=== PATIENT | female | born 1990 | race Caucasian/White ===

== ENCOUNTER 2016-12-02 17:19 | Emergency (ER) | payer MEDICAID ==
[2009-11-01 08:39] VITALS: BMI 31.6
[2016-12-02 18:39] LABS: BASOPHILS 0.1 % (0.0-2.0); EOSINOPHILS 1.3 % (0-7); HEMATOCRIT 39.6 % (36.0-48.0); HEMOGLOBIN 13.2 g/dL (12-16); IMMATURE GRANULOCYTES 0.3 % (0-5); LYMPHOCYTES 24.3 % (15-50); MCH 29.1 pg (26.0-34.0); MCHC 33.3 g/dL (31.0-37.0); MCV 87.4 fL (80.0-100.0); MEAN PLATELET VOLUME 11.3 fL (7.4-10.4); RBC 4.53 10x6/uL (4.00-5.40); RDW 13.2 % (11.5-14.5); WBC 14.1 10x3/uL (4.8-10.8)
[2016-12-02 18:46] LABS: PLATELET COUNT 216 10x3/uL (130-400)
== END 2016-12-02 23:48 | disposition home or self-care (01) ==
LOC: D.ER 17:19
PROVIDERS: Family Medicine
DX: N93.9 Abnormal uterine and vaginal bleeding, unspecified (principal)

== ENCOUNTER 2017-03-18 10:25 | Outpatient (CLI) | payer MEDICAID ==
[2009-11-01 08:39] VITALS: BMI 31.6
--- NOTE | 2017-03-18 16:19 | NUR ---
1030-PATIENT TO ROOM. 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 1035-INJECTION GIVEN -4ML WITH 2ML TO EACH HIP. 1045-RESP WITH EASE. DISCHARGED TO WORK.
== END 2017-03-18 10:45 | disposition home or self-care (01) ==
LOC: D.OPS 10:25
DX: A52.9 Late syphilis, unspecified (principal)

== ENCOUNTER 2017-03-25 11:30 | Outpatient (CLI) | payer MEDICAID ==
[2017-03-25 12:05] VITALS: Ht 157.5 cm
== END 2017-03-25 12:05 | disposition home or self-care (01) ==
LOC: D.OPS 11:30
DX: A52.9 Late syphilis, unspecified (principal)

== ENCOUNTER 2017-04-01 13:00 | Outpatient (CLI) | payer MEDICAID ==
--- NOTE | 2017-04-01 15:57 | NUR ---
1450-PATIENT STATES NEEDS TO HURRY BACK TO WORK, DOESNT HAVE TIME FOR ALL THOSE QUESTIONS TODAY. 1500-MEDICINE HERE FROM PHARMACY. 1505-INJECTIONS OF 2CC EACH GIVEN TO BILAT DELTOID, REFUSES HIP INJECTIONS. 1515-D/C BACK TO WORK. SHE HAS NO QUESTIONS OR CONCERNS.
== END 2017-04-01 23:59 | disposition home or self-care (01) ==
LOC: D.OPS 13:00
DX: O98.119 Syphilis complicating pregnancy, unspecified trimester (principal)

== ENCOUNTER → 2017-07-09 10:50 | Outpatient (CLI) | payer MEDICAID ==
[~2017-07-09 10:50] MED LIST: ACETAMINOPHEN500 M1 PO; HYDROCODON-ACE1 EAC7 PO; IBUPROFEN600 MG PO; IBUPROFEN800 MG PO; TUMS500 MG PO
== END | disposition home or self-care (01) ==
LOC: D.LDO 10:50
DX: O36.8130 Decreased fetal movements, third trimester, not applicable or unspecified (principal); Z3A.00 Weeks of gestation of pregnancy not specified

== ENCOUNTER 2017-07-11 12:28 | Inpatient (IN) | payer MEDICAID ==
[2017-07-11 13:25] LABS: HEMATOCRIT 33.2 % (36.0-48.0); HEMOGLOBIN 11.5 g/dL (12-16); MCH 29.7 pg (26.0-34.0); MCHC 34.6 g/dL (31.0-37.0); MCV 85.8 fL (80.0-100.0); RBC 3.87 10x6/uL (4.00-5.40); RDW 13.1 % (11.5-14.5); WBC 12.5 10x3/uL (4.8-10.8)
[2017-07-11] MEDS ORDERED: ACETAMINOPHEN500 M1 PO (13:32)
[2017-07-11] MEDS ORDERED: TUMS500 MG PO (13:33)
[2017-07-11 13:34] VITALS: BP 111/70; BMI 32.1
[2017-07-11 14:29] LABS: APPEARANCE CLEAR (CLEAR); BILIRUBIN NEGATIVE (NEGATIVE); COLOR YELLOW (YELLOW); GLUCOSE NEGATIVE (NEGATIVE); KETONE NEGATIVE (NEGATIVE); NITRITE NEGATIVE (NEGATIVE); PROTEIN TRACE mg/dL (NEGATIVE); SPECIFIC GRAVITY 1.005 (1.005-1.020); UROBILINOGEN NORMAL (NORMAL)
[2017-07-11 14:32] LABS: BACTERIA FEW /hpf (NONE SEEN); RED CELLS - URINE 25-50 /hpf (0-5); WHITE CELLS - URINE 25-50 /hpf (0-5)
--- NOTE | 2017-07-12 00:58 | NUR ---
Pt requesting prn pain medication. Pt requested pain medication prior to moving rooms. 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 Administered [place] as ordered for pain that pt is rating "7/10". See EMAR for biomedical equipment specialist.
--- NOTE | 2017-07-12 01:21 | NUR ---
Pt request prn pain medication for cramping. See EMAR for medical transcriber. Also provided ice pack for ginette area. Explained use of dermaplast spray. No questions voiced. C/L in reach. Bed low. SR upx2. S/O laying in bed with pt.
--- NOTE | 2017-07-12 03:00 | NUR ---
Pt ambulating in room. Reports continued pain relief from prn meds. Denies any needs or concerns. S/O in room. C/L in reach. Bed low. SR upx2.
--- NOTE | 2017-07-12 05:14 | NUR ---
Pt request prn pain medication. Rating pain 4/10 in ginette area and lower back. PRN medication administered. See EMAR. VS obtained while in room. Pt denies any other needs or concerns. Reports voiding without difficulty. Scant lochia with no clots. Fundus firm. C/L in reach. Bed low. SR upx2.
[2017-07-12 05:15] VITALS: BP 121/66
[2017-07-12 07:30] VITALS: BP 100/70
--- NOTE | 2017-07-12 07:30 | NUR ---
RECEIVED PT LYING TO LEFT SIDE IN BED. WAKES UPON ENTERING ROOM. VSS. AAO X 3. HRRR WITHOUT AUDIBLE MURMUR. BILATERAL EXPIRATORY WHEEZES NOTED TO UPPER LOBES. BBS CLEAR AFTER PT CLEARS/COUGHS. ABDOMEN SOFT/NON-DISTENDED. FUNDUS FIRM AT U/U. RUBRA LOCHIA SMALL AMT. PERINEUM WITH SMALL AMT OF EDEMA NOTED. SKIN PINK IN COLOR. PT DENIES PASSING CLOTS OR HEAVY BLEEDING. NEG HOMANS' SIGN. PPP. NO EDEMA NOTED TO BLE. SL SITE CLEAR. PT REQUESTS AND RECEIVES COKE AND CUP OF ICE. PT DENIES PAIN. SR UP X 2. CALL LIGHT IN REACH. TREAT BOX PROVIDED TO PT AND INSTRUCTED ON 1 X MEAL TICKET FOR SPOUSE. VERBALIZES UNDERSTANDING.
--- NOTE | 2017-07-12 08:15 | NUR ---
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 REQUESTS AND RECEIVES MORE PANTIES, PERIPADS AND CHUX.
--- NOTE | 2017-07-12 09:00 | NUR ---
PT SITTING UP IN BED. REQUESTS AND RECEIVES MORE BETADINE FOR PERIWASH. DENIES PAIN OR OTHER NEEDS.
--- NOTE | 2017-07-12 10:24 | NUR ---
PT AMBULATORY IN ROOM. REQUESTS AND RECEIVES ICE PACK. NO OTHER C/O OR NEEDS VOICED.
--- NOTE | 2017-07-12 12:10 | NUR ---
PT SITTING UP IN BED. VISITS WITH FAMILY. DENIES NEEDS OR C/O.
--- NOTE | 2017-07-12 13:14 | NUR ---
REQUESTED PAIN MEDICATION FOR C/O 4/10 PERINEAL THROBBING. DISCUSSED PAIN MANAGEMENT OPTIONS. HAS DERMOPLAST. TORADOL 10MG GIVEN PO FOR RELIEF OF PAIN. WITCH BRAD PADS ALSO GIVEN FOR RELIEF OF PERINEAL DISCOMFORT. INSTRUCTED ON USE. VERBALIZED UNDERSTANDING. DISCUSSED SITZ BATH. INSTRUCTED TO CALL WHEN READY TO USE SO THAT DEMONSTRATION AND ASSISTANCE CAN BE PROVIDED. ITEMS LEFT IN ROOM FOR SHOWER AND LINEN CHANGE. TO CALL WHEN READY. EXTRA DISPOSABLE UNDERWEAR IN ROOM WITH PADS. VISITOR IN BED WITH PT. INFANT IN ROOM. SIDE RAILS UP X 2. TO CALL IF ANYTHING ELSE IS NEEDED.
--- NOTE | 2017-07-12 14:23 | NUR ---
TO ROOM TO DO PAIN REASSESSMENT. FAMILY SAYS SHE IS TAKING A WALK AND WILL BE BACK SOON. IN ROOM WITH FAMILY.
--- NOTE | 2017-07-12 15:01 | NUR ---
SITTING UP ON BED. SAYS HER PAIN IS "ZERO". VISITORS IN ROOM. IN ROOM. NO REQUESTS AT THIS TIME.
[2017-07-12 16:00] VITALS: BP 113/69
--- NOTE | 2017-07-12 16:00 | NUR ---
PT SITTING UP IN BED. VISITS WITH FAMILY. VSS. PT DENIES PAIN OR NEEDS.
--- NOTE | 2017-07-12 18:00 | NUR ---
PT SITTING UP IN BED. ON LAPTOP. PT AGAIN, REINSTRUCTED ON USE OF SITZ BATH ORDERED BY PHYSICIAN. PT STATES UNDERSTANDING.
--- NOTE | 2017-07-12 18:46 | NUR ---
DR RHOADES HERE. VISITS WITH PT. NO NEW ORDERS RECEIVED.
--- NOTE | 2017-07-12 18:58 | NUR ---
REPORT GIVEN TO ON-COMING SHIFT.
[2017-07-12 19:13] VITALS: BP 114/68
--- NOTE | 2017-07-12 19:13 | NUR ---
RN TO PT BS. PT LYING ON BACK ON BEDSIDE COUCH WITH UP IN ARMS. PT AAOX3. BREATH SOUNDS CLEAR & UNLABORED X2. HR-RRR, PPP, BOWEL SOUNDS ACTIVE X4. FUNDUS FIRM, ML, U/2. PT REPORTS SMALL BLEEDING WITH NO CLOTS NOTED WHEN VOIDING. PIV TO LT HAND D/C'D WITH CATH TIP INTACT. BANDAID PLACED OVER SITE. PT JOSE. WELL. NO EDEMA NOTED TO BLE. PT DENIES FURTHER NEEDS AT THIS TIME. FOB AT BEDSIDE FOR SUPPORT. WILL CONT TO MONITOR. BED LOW, WHEELS LOCKED, CL IN REACH, SIDE RAILS UPX2.
--- NOTE | 2017-07-12 20:36 | NUR ---
ROUNDS MADE. FOB LYING ON BEDSIDE COUCH WITH IN OPEN CRIB AT BEDSIDE. PT NOTED TO NOT BE IN THE ROOM AND FOB REPORTS PT IS "WALKING." ADV FOB TO LET PT KNOW TO RING CL IF SHE NEEDS ANYTHING. UNDERSTANDING VERBALIZED.
--- NOTE | 2017-07-12 21:40 | NUR ---
ROUNDS MADE. PT AND FOB OUT OF ROOM AT THIS TIME. WILL CHECK BACK.
--- NOTE | 2017-07-12 22:35 | NUR ---
TORADOL 10MG PO X1 TAB GIVEN PER PT REQUEST FOR PAIN RATED 1/10 IN PERINEUM AT THIS TIME. VSS. PT SITTING UP IN BED WITH INFANT UP IN ARMS BONDING AT THIS TIME. PT DENIES FURTHER NEEDS. WILL CONT TO MONITOR.
--- NOTE | 2017-07-12 23:20 | NUR ---
PAIN REASSESSMENT COMPLETE. PT RATES PAIN 0/10 AT THIS TIME AND DENIES FURTHER NEEDS.
[2017-07-12 23:54] VITALS: BP 119/72
--- NOTE | 2017-07-13 00:15 | NUR ---
PT CALLS VIA CL. REQUEST SODA AND ICE, GIVEN PER REQUESTS. DENIES ADDITIONAL NEEDS. CHANGING DIAPER AT THIS TIME. NOTIFIED PT THAT NBN WILL NEED INFANT FOR V/S AND WT PRIOR TO NEXT FEEDING, VERBALIZES UNDERSTANDING. BED IN LOW POSITION WITH UPPER SIDE RAILS RAISED X2. CL AND PHONE WITHIN REACH. S/O AT BEDSIDE AND SUPPORTIVE OF PT NEEDS.
--- NOTE | 2017-07-13 02:58 | NUR ---
PT ON CL REQUESTING PAIN MEDICATION AND SOMETHING FOR NAUSEA. WILL RETURN WITH SAME.
--- NOTE | 2017-07-13 03:00 | NUR ---
MD ON UNIT AND CONSULTED. V/O RCVD FOR 4 MG ZOFRAN Q4H PRN.
--- NOTE | 2017-07-13 03:25 | NUR ---
[place] 5/325MG X1 TAB GIVEN FOR PAIN RATED 6/10 AT THIS TIME. PT ADV TO STAY ON UNIT WHEN TAKING NARCOTICS. PT VERBALIZED UNDERSTANDING AND IS AGREEABLE. ZOFRAN 4MG X1 TAB GIVEN FOR PT C/O NAUSEA. PT DENIES FURTHER NEEDS. INFANT UP IN ARMS AT THIS TIME. WILL CONT TO MONITOR.
--- NOTE | 2017-07-13 04:10 | NUR ---
PAIN REASSESSMENT COMPLETE. PT RATES PAIN 3/10 AT THIS TIME AND TOLERABLE. PT SITTING UP IN BED WITH UP IN ARMS BONDING AND DENIES FURTHER NEEDS.
--- NOTE | 2017-07-13 06:08 | NUR ---
ROUNDS MADE. PT SITTING UP IN BED BREAST FEEDING AT THIS TIME. PT REQUESTS NAUSEA MEDICATION. ADV PT THAT IT IS EVERY 4 HOURS NEEDED. PT C/O INFANT NOT SLEEPING AND STATES "I'M JUST TIRED. I NEED TO SLEEP." ADV PT THAT WILL NOTIFY ONCOMING SHIFT OF DESIRE FOR ZOFRAN. PT IS AGREEABLE AND DENIES FURTHER NEEDS.
--- NOTE | 2017-07-13 07:45 | NUR ---
to room for am assessment, pt sitting up in bed while eating regular diet tray, request made that pt call when she is finished eating. Guest tray offered to spouse and his is acceptable. Dietary ordered placed thru [facility].
--- NOTE | 2017-07-13 08:28 | NUR ---
MED GIVEN FOR NAUSEA. PT'S BREAKFAST TRAY SITTING ON HER BEDSIDE TABLE.
--- NOTE | 2017-07-13 09:00 | NUR ---
Pt calls out questions where guest food tray is, explained that dietary would be called since order had been placed.
--- NOTE | 2017-07-13 09:18 | NUR ---
To room to explain that dietary was contacted and complete am assessment, spouse at bedside holding but pt has stepped out of room at this time.
--- NOTE | 2017-07-13 10:46 | NUR ---
Pt denies pain or discomfort at this time, she is sitting up in bed with infant. VSS as charted on flowsheet as well as completed, pt denies any concerns with rooming in since infant will not be discharged until later in the week. Paperwork about rooming in left with her and will be gone over along with discharge instructions when sig other returns to room. Denies any clots with voids and states bleeding is less than her menstral. side rails up x 2 with phone and call light in reach.
[2017-07-13 10:53] VITALS: BP 107/77
--- NOTE | 2017-07-13 11:40 | NUR ---
Called to room, sig other present and agrees to go and get scripts filled. Provided with scripts for [place] 5/325mg and Motrin 800mg. Medical records number provided and she states understanding to call for paternity affidavit to be signed. Sintia pads placed in bathroom per pt request. No other needs at this time, will call when she is ready for her discharge paperwork.
--- NOTE | 2017-07-13 12:07 | NUR ---
Large cup of ice per request. no other needs/ denies pain or discomfort.
[2017-07-13] MEDS ORDERED: HYDROCODON-ACE1 EAC7 PO (14:29)
[2017-07-13] MEDS ORDERED: IBUPROFEN800 MG PO (14:29)
--- NOTE | 2017-07-13 14:40 | NUR ---
attempt to go over discharge instructions with pt but she is resting with eyes closed and resp even. Will recheck in approx an hour. side rails up x 2 with phone and call light in reach.
--- NOTE | 2017-07-13 15:45 | NUR ---
Verbal and written discharge instructions gone over, pt states her understanding and questions answered about continue dietary services with roooming in. Sig other had scripts filled and brought back to room. pt rates pain at this time at 5/10 and request pain med if possible. No other questions or concerns at this time.
--- NOTE | 2017-07-13 16:00 | NUR ---
pain med given as charted on emar. explained would reevalute pain in approx 30 minutes than proceed with discharge pt states her understanding. in crib at bedside.
--- NOTE | 2017-07-14 08:44 | PRO ---
PATIENT:LOPEZ STEVENSON MAGDALENA MEDICAL RECORD: [id number] : 88 LOCATION:[id number] ADMISSION DATE: 07/11/17 PROCEDURE PERFORMED BY: MAGI ASENCIO MD DATE OF PROCEDURE: 07/13/2017 Ms. Stevenson is a 27-year-old female who had a for delivery, develops post-dural puncture headache, had epidural blood patch, which was done on Thursday the . The patient was discharged home. The patient had an hour drive, apparently to her home. The headache had resolved with the previous blood patch. The patient presents today with increasing positional headache. The patient relates that her pain level was 8/10, goes to 10/10 upon sitting. She exhibits photophobia. The patient relates that her headache had resolved prior to discharge. After a ride home, which was approximately 1 hour, the patient noticed that the next morning her headache returned, although it was much milder and has developed this currently gotten worse over the last day and a half. She was seen this morning as a consult for reevaluation and possible epidural blood patch. The patient does exhibit post-dural puncture headache signs, photophobia. Headache increases in intensity when she goes from a supine to sitting position. Also, the patient relates that the headache is at the frontal area and top of her head. Discussed options including conservative therapy, which the patient had elected to do previously with no success or reblood patch. The patient elects for a repatch, had the patient given a liter of fluid IV prior to blood patch and related that her headache had gotten improvement, but not resolve, probably from 8/10 maybe to a 7/10. Risks and benefits were explained including risk of bleeding, infection and damage lying structures. The patient accepts risks and benefits and should be currently noted that the patient is currently on no anticoagulation therapy at this time. The patient was placed in sitting position, Betadine prepped and draped, under sterile conditions, local anesthetic was raised at the L5-S1 interspace, which was a lever lower than the currently L4-L5 spinal and epidural injection site. Upon loss of resistance to the epidural space with a 17-gauge Tuohy needle. Using the air technique, a 25 mL of autologous blood was drawn from left antecubital fossa under sterile conditions with Betadine prep, was then introduced into the epidural space via the 17-gauge Tuohy needle at the L5-S1 interspace. The patient noted that her headache almost resolved immediately following epidural blood patch going from 8/10 to about a 2/10. The patient was placed in the supine position. The patient is to remain in a supine position overnight to make sure that the blood patch sets. The patient is also given adequate hydration through her IV for another liter of fluid. My recommendation is that the patient be kept overnight to make sure that her epidural blood patch maintained its integrity without any undue stress with an hour drive on the way home. TRANSINT:[id number] Voice Confirmation ID: [id number] DOCUMENT ID: [id number] PROCEDURE NOTE [id number] LOPEZ STEVENSON FARRELL MD at 0844 CC: [id number] DICTATION DATE: 07/13/17 1456 STONE POLISHER: 07/13/17 2330 DIS IN 07/13/17 [facility] [address] [place] [address]
[2017-07-14 13:16] LABS: RAPID PLASMA REAGIN Reactive (Non Reactive); TREPONEMA PALLIDUM AB Positive (Negative)
== END 2017-07-13 16:36 | disposition home or self-care (01) | DRG 775 ==
LOC: D.LD 12:28
PROVIDERS: ADMIT Obstetrics & Gynecology
PROC: 10E0XZZ Delivery of Products of Conception, External Approach (ICD-10-PCS; principal; 2017-07-11)
PROC: 0KQM0ZZ Repair Perineum Muscle, Open Approach (ICD-10-PCS; 2017-07-11)
PROC: 3E0R3GC Introduction of Other Therapeutic Substance into Spinal Canal, Percutaneous Approach (ICD-10-PCS; 2017-07-11)
PROC: 3E0R3GC Introduction of Other Therapeutic Substance into Spinal Canal, Percutaneous Approach (ICD-10-PCS; 2017-07-13)
DX: O99.824 Streptococcus B carrier state complicating childbirth (principal); Z3A.37 37 weeks gestation of pregnancy; Z37.0 Single live birth; O99.334 Smoking (tobacco) complicating childbirth; O89.4 Spinal and epidural anesthesia-induced headache during the puerperium

== ENCOUNTER 2017-10-22 05:40 | Day surgery (SDC) | payer MEDICAID ==
[2017-10-20 15:38] LABS: BASOPHILS 0.3 % (0-2); HEMATOCRIT 39.7 % (36.0-48.0); HEMOGLOBIN 13.3 g/dL (12-16); IMMATURE GRANULOCYTES 0.2 % (0-5); LYMPHOCYTES 25.1 % (15-50); MCH 28.4 pg (26.0-34.0); MCHC 33.5 g/dL (31.0-37.0); MCV 84.6 fL (80.0-100.0); MEAN PLATELET VOLUME 11.1 fL (7.4-10.4); MONOCYTES 4.9 % (2-11); NEUTROPHILS 67.5 % (40-80); PLATELET COUNT 264 10x3/uL (130-400); RBC 4.69 10x6/uL (4.00-5.40); RDW 13.8 % (11.5-14.5); WBC 10.9 10x3/uL (4.8-10.8)
[~2017-10-22] VITALS: Ht 154.9 cm; Wt 75.3 kg
[~2017-10-22 05:40] MED LIST changes: -IBUPROFEN600 MG PO
[2017-10-22 06:42] VITALS: BP 103/58; BMI 31.4
[2017-10-22 06:43] LABS: HCG URINE NEGATIVE (NEGATIVE)
[2017-10-22 06:49] VITALS: Ht 154.9 cm; Wt 75.3 kg
[2017-10-22] MEDS ORDERED: HYDROCODON-ACE1 EAC7 PO (09:47)
[2017-10-22] MEDS ORDERED: IBUPROFEN600 MG PO (09:47)
== END 2017-10-22 10:10 | disposition home or self-care (01) ==
LOC: D.OPS 05:40 → D.PAN 07:30 → D.OPS 10:10
PROVIDERS: Obstetrics & Gynecology
DX: Z30.2 Encounter for sterilization (principal); N85.4 Malposition of uterus; Z86.19 Personal history of other infectious and parasitic diseases; Z01.812 Encounter for preprocedural laboratory examination

== ENCOUNTER → 2020-01-20 09:00 | Outpatient (CLI) | payer OTHER ==
[2017-10-22 06:49] VITALS: BMI 32.1
[~2020-01-20 09:00] MED LIST changes: +IBUPROFEN600 MG PO
== END | disposition home or self-care (01) ==
LOC: D.MAMMO 01-19 13:00 → D.US 01-19 14:00 → D.MAMMO 08:30
PROVIDERS: ATTEND Surgery
DX: N63.23 Unspecified lump in the left breast, lower outer quadrant (principal)

== ENCOUNTER → 2020-01-24 17:19 | Outpatient (CLI) | payer OTHER ==
[2017-10-22 06:49] VITALS: BMI 32.1
== END | disposition home or self-care (01) ==
LOC: D.LABREF 17:19
PROVIDERS: ATTEND Surgery
DX: N63.23 Unspecified lump in the left breast, lower outer quadrant (principal)